=== PATIENT | female | born 1955 | race Caucasian/White ===

== ENCOUNTER 2021-07-23 08:01 | Outpatient (CLI) | payer MEDICARE, SELFPAY ==
--- NOTE | 2021-07-23 08:00 | US_ITS ---
WS: [id number] ULTRASOUND PELVIS TECHNIQUE: Transvaginal. CLINICAL INFORMATION: N95.0 - Postmenopausal bleeding : No. COMPARISON: None. FINDINGS: Patient with history of prolapsed uterus. Patient complains of pain with transducer pressure and unab le to complete examination. In addition prolapsed bladder is seen and prevents transvaginal examination. US/US transvaginal [id number] IMPRESSION: Prolapsed bladder is seen and prevents transvaginal ultrasound examination. [place] dewayne is not evaluated.
== END 2021-07-23 08:02 | disposition home or self-care (01) ==
PROVIDERS: PCP Family Medicine; Visit Provider Obstetrics & Gynecology
DX: N95.0 Postmenopausal bleeding (principal); N81.10 Cystocele, unspecified
CPT/HCPCS: 76830

== ENCOUNTER 2021-09-10 08:12 | Outpatient (CLI) | payer MEDICARE, SELFPAY ==
--- NOTE | 2021-09-10 08:35 | USCV_ITS ---
Bela Benedict Age: 66 Gender: F : 1955 Exam Date: 09/10/2021 08:43 Ordering Phys: Rachelle Mcfadden Technologist: Shreya Olson Exam Location: [facility]_ Indication: Hypertension uncontrolled Aortic Velocity @ SMA (cm/s) 112 RIGHT KIDNEY LEFT KIDNEY Velocity (cm/s) Velocity (cm/s) Sys/Umana Sys/Umana Resistive Index Resistive Index 159.4 / 55.4 0.65 Proximal Renal Artery 145.0 / 40.9 0.72 196.8 / 52.7 0.73 Mid Renal Artery 187.1 / 59.6 0.68 195.4 / 61.0 0.69 Distal Renal Artery 167.7 / 49.9 0.70 158.0 / 34.7 0.78 Hilar 185.7 / 61.0 0.67 175.0 / 41.8 0.73 Upper Pole 84.3 / 21.5 0.75 74.4 / 19.2 0.74 Mid Pole 49.6 / 13.0 0.73 100.3 / 28.3 0.72 Lower Pole 64.1 / 18.3 0.71 1.80 Renal Aortic Ratio 1.67 Accleration Index (cm/sec2) 862.00 Hilar 1155.0 0 630.00 Upper Pole 512.00 562.00 Mid Pole 387.00 891.00 Lower Pole 238.00 108.3 Kidney Length (mm) 110.6 CONCLUSIONS Moderate left hydronephrosis. This could be further evaluated with CT Abdomen/Pelvis to assess for distal obstruction Stan kidney 11.0cm Right kidney 10.8cm Compared to prior study. No sonographic evidence of hemodynamically significant renal artery stenosis bilaterally. Maksim Tavarez MD (Electronically Signed) Final Date: 10 September 2021 12:43 S
== END 2021-09-10 08:13 | disposition home or self-care (01) ==
PROVIDERS: PCP Family Medicine; Visit Provider Family Medicine
DX: I10 Essential (primary) hypertension (principal); N13.30 Unspecified hydronephrosis
CPT/HCPCS: 93975

== ENCOUNTER 2021-09-11 13:29 | Outpatient (CLI) | payer MEDICARE, SELFPAY ==
--- NOTE | 2021-09-11 13:40 | CT_ITS ---
WS: [id number] CT ABDOMEN AND PELVIS NONCONTRAST HISTORY: HYDRONEPHROSIS TECHNIQUE: Imaging performed through the abdomen and pelvis. Coronal and sagittal reformats are submi tted. All CT scans at [facility] use at least one of these dose optimization techniques: auto mated exposure control; mA and/or kV adjustment per patient size (includes targeted exams where dose is matched to clinical indication); or iterative reconstruction. DLP: 693.67 mGy.cm COMPARISON: None available. Lower thorax: Lung bases are clear. Visualized heart is normal. No hiatal hernia. Liver: Normal size liver. No mass or bile duct dilatation. Gallbladder: Normal gallbladder. Pancreas: Poorly visualized. No abnormality identified. Spleen: Normal. Adrenal glands: Normal. No mass. Right kidney: Normal size kidney with no mass or hydronephrosis. Left kidney: No perinephric stranding. There is moderate hydronephrosis. The proximal ureter is dilat ed. Ureter returns to more normal diameter in the proximal ureter. No mass identified and no calcific ation or stone at this location. Nonobstructing tiny calcifications in the LEFT renal pelvis. Low-att enuation nodule with wall calcification upper pole LEFT kidney measures 13 mm. Aorta: Atherosclerotic changes within the aorta. No aneurysm. No free fluid, intraperitoneal air or significant lymphadenopathy. GI tract: Extensive fecal retention and constipation. Air throughout the colon. No obstruction. Abdominal wall: Small umbilical hernia contains fat only. Pelvis: Normal. Osseous structures: Mild scoliosis and degenerative changes. CT/CT kidney stone [id number] IMPRESSION: 1. Moderate LEFT hydronephrosis. Mild change in caliber in the proximal LEFT u reter. No ureteral calcification or density identified. Stricture or ureteral n odule not excluded. Recommend further evaluation by urology. CT urography may b e also be helpful to try to elicit the etiology of the hydronephrosis. 2. LEFT renal cyst with wall calcification upper pole. 3. Diffuse marked constipation.
== END 2021-09-11 13:30 | disposition home or self-care (01) ==
LOC: RAD 13:30
PROVIDERS: PCP Family Medicine; Visit Provider Nurse Practitioner Family
DX: N13.30 Unspecified hydronephrosis (principal); K59.00 Constipation, unspecified; Q61.01 Congenital single renal cyst
CPT/HCPCS: 74176

== ENCOUNTER 2021-09-22 08:38 | Day surgery (SDC) | payer MEDICARE, SELFPAY ==
[2021-09-21 14:47] VITALS: BMI 21.5
[2021-09-22] VITALS (9 sets, daily range): BP systolic 164–198; BP diastolic 90–127; PULSE 54–70; RESP 12–17; TEMP 36.3–36.6; O2SAT 96–100
[2021-09-22] MEDS: acetaminophen 1,000 MG/100 ML PIGGYBACK 400 MG IV (09:25)
[2021-09-22] MEDS: sodium chloride 0.9% 1,000 ML 30 ML IV (09:25)
--- NOTE | 2021-09-22 10:20 | W.PM.OPSUD ---
Surgery/Procedure H&P Update DATE OF PROCEDURE: September 22, 2021 DATE H&P PERFORMED: 09/17/21 H&P UPDATE INFORMATION: I have reviewed H&P completed within last 30 days, I have examined patient prior to procedure and Changes to prior documentation as noted here CHANGES TO PREVIOUS DOCUMENTATION: The patient had stents placed yesterday due to urinary retention PREOP DIAGNOSIS: thickened endometrium, PMB PLANNED PROCEDURE: Operation Date: 09/22/21 10:15 Proposed Procedures p Hysteroscopy, dilation and curettage with Myosure 37069, 43972, 63721,N95.0(Not Applicable) - Luz Ames MD s Dilation And Curettage (D&C)(Not Applicable) - Luz Ames MD Related Problem List Diagnoses (1) Cervical stenosis (uterine cervix): (2) PMB (postmenopausal bleeding): (3) Procidentia of uterus:
--- NOTE | 2021-09-22 10:23 | ANES.PREANE2 ---
Pre-Anesthetic Assessment Height/Weight: Height 1.57 m Weight 53.524 kg Temp Pulse Resp BP Pulse Ox O2 Del Method 97.4 F L 70 15 198/127 100 09/22/21 08:52 09/22/21 08:52 09/22/21 08:52 09/22/21 08:52 09/22/21 08:52 09/22/21 08:54 Preop Diagnosis: thickened endometrium, PMB Operation Date: 09/22/21 10:15 Proposed Procedures p Hysteroscopy, dilation and curettage with Myosure 97504, 00815, 97517,N95.0(Not Applicable) - Luz Ames MD s Dilation And Curettage (D&C)(Not Applicable) - Luz Ames MD Familial anesthetic complications: PONV, postop delirim Was Beta Wes taken within 24 hours: Yes Was Clonidine taken within 24 hours: N/A Last intake: Intake Last Liquid Date 09/21/21 Last Liquid Time 23:00 Last Solid Date 09/21/21 Last Solid Time 23:00 Social Tobacco and No alcohol Exam alert, oriented x 3 and regular rate & rhythm rhonchi Airway Submandibular: within normal limits Cervical ROM: within normal limits Mallampati: Class II Dentition: chipped Comments: Comments: Missing several Pulmonary Chronic Obstructive Pulmonary Disease CV/HEM Hypertension Neuropsych cerebral aneurysm Anesthetic Plan ASA status: 3 Anesthesia: General (TIVA for PONV) Medications/Allergies Home Medications Medication Instructions Recorded Confirmed Last Taken Type acetaminophen 325 mg capsule 325 mg PO QID PRN Pain 07/09/21 09/21/21 Unknown History ascorbic acid (vitamin C) 1,000 mg 1,000 mg PO Q12H 07/09/21 09/22/21 09/21/21 History tablet,extended release hydralazine 10 mg tablet 10 mg PO TID 07/09/21 09/22/21 09/22/21 History lisinopril 40 mg tablet 40 mg PO DAILY 07/09/21 09/22/21 09/21/21 History magnesium 200 mg tablet 200 mg PO DAILY 07/09/21 09/22/21 09/21/21 History gnwqvpkp-qnv-iskfg ac 400 1 tab PO DAILY 07/09/21 09/22/21 09/21/21 History mcg-calcium carb 500 mg-vit K1 20 mcg tablet (Women's 50 Plus Multivitamin) omega 4-cpd-vtv-fish oil 100 1 cap PO DAILY 07/09/21 09/21/21 09/17/21 History mg-160 mg-1,000 mg capsule (Fish Oil) propranolol 10 mg tablet 10 mg PO TID 07/09/21 09/22/21 09/21/21 History lacosamide 100 mg tablet (Vimpat) 100 mg PO BID 09/17/21 09/22/21 09/22/21 History misoprostol 200 mcg tablet 600 mcg PO Q6H stenotic cervix #36 09/18/21 09/22/21 09/22/21 Rx (Cytotec) tabs Allergies Allergy/AdvReac Type Severity Reaction Status Date / Time divalproex sodium Allergy Severe Unknown Verified 09/21/21 14:37 [From Depakote] Calcium Channel Blocking Allergy Unknown Unknown Verified 09/21/21 14:37 Agent Dilt gabapentin Allergy Unknown Unknown Verified 09/21/21 14:37 levetiracetam Allergy Unknown Unknown Verified 09/21/21 14:37 morphine Allergy Unknown Unknown Verified 09/21/21 14:37 Warsuti-ZEY-JqN Reductase Allergy Unknown Unknown Verified 09/21/21 14:37 Inhibitor Current Medications Generic Name Dose Route Start Last Admin Trade Name Freq PRN Reason Stop Dose Admin Sodium Chloride 1,000 mls @ 30 mls/hr 09/22/21 08:45 09/22/21 09:25 Sodium Chloride 0.9% IV 09/23/21 08:44 30 mls/hr .Q24H MAYDA Administration PFSH Anesthesia Medical History Hypertension Hyperthyroidism Stroke December Surgical History History of back surgery 3 back surgeries, implantations placed History of craniotomy 2004, reconnection in 2005 Family History Mother Hyperlipidemia Hypertension Thyroid disease hyperthyroidism Daughter Stroke Denies family history of Cervical cancer Colon cancer Prostate cancer Diabetes Heart disease Breast cancer Bleeding disorder Uterine cancer Data Anesthesia Cardiac Studies: No Data to Display
[2021-09-22] MEDS: ceFAZolin 2,000 MG in sodium chloride 0.9% (plus) 50 ML 100 MG IV (10:31)
--- NOTE | 2021-09-22 11:13 | PM.OP ---
Operative Report Date of procedure: September 22, 2021 Pre-op diagnosis: Preop Diagnosis thickened endometrium, PMB Post-op diagnosis: same Post-op findings: universally thickened endometrium Procedure done: hysteroscopy, dilation and curettage with myosure Specimens removed/disposition: endometrial curettings to pathology Surgeon: Luz Ames Anesthesia: MAC Estimated blood loss (mL): 5 IV fluids (mL): 500 Findings: hysteroscoy deficit: 75 ml. Condition: stable Disposition: PACU Procedure: The patient was taken to the operating room where monitored anesthesia was administered and to be adequate. She was prepped and draped in the normal sterile fashion in the dorsal lithotomy position in [facility]. A weighted speculum was placed into the vagina and the anterior lip of the cervix grasped with a single-tooth tenaculum. The uterus was sounded to 10 cm. The cervix was dilated to 16 Slov[place]. The hysteroscope was advanced into the endometrial cavity. There was excessive tissue visualized. The MyoSure device was activated and the tissue was removed. Pictures were taken pre and post procedure. All instruments were removed. The patient tolerated the procedure well. Sponge lap and needle counts were correct x3. She was taken to the recovery room in stable condition.
--- NOTE | 2021-09-22 11:19 | PM.DCS ---
Discharge Providers Date of Admission: 09/22/21 Date of Discharge: September 22, 2021 Attending Provider at Admission: joi Attending Provider at Discharge: Luz Ames MD Primary Care Provider: Estuardo Oconnor MD Diagnoses at Discharge Discharge Diagnosis (1) Cervical stenosis (uterine cervix): Status: Acute (2) PMB (postmenopausal bleeding): Status: Acute (3) Procidentia of uterus: Status: Acute Reason for Visit Reason for Visit: Surg on 09/22/21 Hospital Course Hospital Course The patient was admitted for surgery. She did well postoperatively and was ready for discharge. Discharge Data Studies Completed and Pending Pending at discharge Category Date Time Status ES surgery / GI images Routine Exams 09/22/21 09:23 Taken Vitals Last Vital Signs Temp 97.4 F L 09/22/21 08:52 Pulse 70 09/22/21 08:52 Resp 15 09/22/21 08:52 BP 198/127 09/22/21 08:52 Pulse Ox 100 09/22/21 08:52 O2 Del Method 09/22/21 08:54 Discharge Plan Discharge Patient Disposition: Home Condition: Stable Prescriptions: Continued lacosamide [Vimpat] 100 mg tablet 100 mg PO BID misoprostol [Cytotec] 200 mcg tablet 600 mcg PO Q6H Qty: 36 0RF Rx Instructions: start 12:00 pm Tuesday 09/19. Final dose 6:00 am 09/22 hydralazine 10 mg tablet 10 mg PO TID propranolol 10 mg tablet 10 mg PO TID lisinopril 40 mg tablet 40 mg PO DAILY Label Comments: at night ascorbic acid (vitamin C) 1,000 mg tablet extended release 1,000 mg PO Q12H Fish Oil 100-160-1,000 mg capsule 1 cap PO DAILY magnesium 200 mg tablet 200 mg PO DAILY Women's 50 Plus Multivitamin 400 mcg-500 mg calcium-20 mcg tablet 1 tab PO DAILY acetaminophen 325 mg capsule 325 mg PO QID PRN (Reason: Pain) Discharge Orders: Discharge Order (Routine); Ordered 09/22/21 Ordered By: Luz Ames Discharge Attestations Time Spent in Discharge Care*: less than 30 min Quality Metrics Clinical Quality Measures [ No reported AMI, CVA or VTE this stay] Coding Level of Care Code Acute Chg FW DC note Diagnoses Cervical stenosis (uterine cervix) N88.2 PMB (postmenopausal bleeding) N95.0 Procidentia of uterus N81.3
--- NOTE | 2021-09-22 15:56 | ANE.PACU2 ---
Inpatient post-anesthesia follow up: Airway intact: Yes Vital signs: Temperature 98 F Pulse Rate 64 Respiratory Rate 17 Blood Pressure 164/100 Pulse Oximetry 99 Oxygen Delivery Me thod Room Air Oxygen Flow Rate Fraction of Inspir ed Oxygen Hydration adequate: Yes Nausea and vomiting: No Pain level: 2 Mental status: Baseline
== END 2021-09-22 12:24 | disposition home or self-care (01) ==
PROVIDERS: PCP Family Medicine; Visit Provider Obstetrics & Gynecology
PROC: 0UDB8ZZ Extraction of Endometrium, Via Natural or Artificial Opening Endoscopic (ICD-10-PCS; CPT 58558; principal; 2021-09-22 10:05)
PROC: (CPT 58120; 2021-09-22 10:05)
DX: R93.89 Abnormal findings on diagnostic imaging of other specified body structures (principal); N88.2 Stricture and stenosis of cervix uteri; N95.0 Postmenopausal bleeding; N81.3 Complete uterovaginal prolapse; J44.9 Chronic obstructive pulmonary disease, unspecified; I10 Essential (primary) hypertension; E03.9 Hypothyroidism, unspecified; Z86.73 Personal history of transient ischemic attack (TIA), and cerebral infarction without residual deficits
CPT/HCPCS: 58558; 88305; 88342; J0330; J1100; J1200; J2405; J2704; J3010; J7030

== ENCOUNTER 2022-09-22 11:15 | Outpatient (CLI) | payer MEDICARE, SELFPAY ==
--- NOTE | 2022-09-22 11:21 | MM_ITS ---
WS: [id number] BILATERAL 3D TOMOSYNTHESIS DIGITAL SCREENING MAMMOGRAPHY WITH CAD CLINICAL INFORMATION: SCREENING HISTORY: Screening mammogram. No current complaints. COMPARISON: 2019 TECHNIQUE: Bilateral CC and MLO views. FINDINGS: Scattered fibroglandular densities bilaterally. No suspicious focal mass, asymmetry, calcifications, or architectural distortion. No evidence of malignancy. A few incidental punctate calcifications. MM/[place] [id number] IMPRESSION: BI-RADS: 2-Benign FOLLOW UP: 1 Year Follow-up Recommend return to annual screening mammography.
== END 2022-09-22 11:16 | disposition home or self-care (01) ==
PROVIDERS: PCP Family Medicine; Visit Provider Family Medicine
DX: Z12.31 Encounter for screening mammogram for malignant neoplasm of breast (principal)
CPT/HCPCS: 77063; 77067

== ENCOUNTER → 2023-06-27 09:05 | Outpatient (BNVA) | payer MEDICARE, SELFPAY | PROVIDERS: PCP Family Medicine; Visit Provider Podiatrist Foot & Ankle Surgery | DX: S92.912A Unspecified fracture of left toe(s), initial encounter for closed fracture (principal); X58.XXXA Exposure to other specified factors, initial encounter | CPT/HCPCS: 99203 ==

== ENCOUNTER 2024-11-13 11:28 | Emergency (ER) | payer OTHER, SELFPAY ==
--- OUTSIDE RECORDS SUMMARY | 2024-07-09 10:00 | XMS_ITS ---
Author Organization [email or web address] Address [address] [facility] [place] [address] Care Team Providers Care Store Warehouse Associate Name Role Phone Blanco Lou Primary Care Provider UnavailGERI Chong Unavailable [phone] Rachelle Mcfadden APRN Unavailable Unavailable WADE LOVE Unavailable [phone] REASON FOR VISIT 1 yr w/ ua/pvr Encounters Encounter Location Date Provider Diagnosis [email or web address] [address] [place] [address] 07/09/2024 WADE LOVE Plan Of Treatment No Information Progress Notes * Bela HOLLINGSWORTHDOB: [birth year] (69 yo F)Acc No.[id number]:07/09/2024 Progress Notes Patient: Debbi SILVEIRA Bela Verdugo Provider: WOLF Casey :1955 A ge:69 Y S ex:Female Date:07/09/2024 Address:[address] , [address] Pcp:Blanco Lou Subjective: * Chief Complaints: * 1 . 1 yr w/ ua/pvr. * Medical History: Objective: * Vitals: Assessment: Plan: * Treatment: * Billing Information: * Visit Code: * Procedure Codes: * Electronic signature of WADE LOVE APRN on 11/13/2024 at 11:35 AM CDT Sign off status: Pending * Provider: WOLF Casey Date: 07/09/2024 Generated for Florian ng/Faradhag/eTransmitting on: 0 11/13/2024 11:35 AM CDT
--- OUTSIDE RECORDS SUMMARY | 2024-08-10 04:50 | XMS_ITS ---
Author Organization [email or web address] Address [address] [place] [address] Care Team Providers Care Building Rigger Name Role Phone Blanco Lou Primary Care Provider UnavailGERI Chong Unavailable [phone] Rachelle Mcfadden APRN Unavailable Unavailable WADE MORAN Unavailable [phone] REASON FOR VISIT 1 yr w/ ua/pvr Encounters Encounter Location Date Provider Diagnosis [email or web address] [address] [place] [address] 08/10/2024 WADE MORAN Incomplete emptying of bladder R33.9 ; S/P hysterectomy Z90.710 and History of hydronephrosis Z87.448 Assessments Encounter Date Diagnosis (ICD Code) Assessment Notes Treatment Notes Treatment Clinical Notes Section Notes 08/10/2024 Incomplete emptying of bladder (ICD-10 - R33.9) 08/10/2024 S/P hysterectomy (ICD-10 - Z90.710) 08/10/2024 History of hydronephrosis (ICD-10 - Z87.448) Plan Of Treatment No Information Progress Notes * Bela HOLLINGSWORTHDOB: [birth year] (69 yo F)Acc No.[id number]:08/10/2024 Progress Notes Patient: Debbi SILVEIRABela Provider: Jennifer Moran APRN-[facility] CONS[facility]ANT :1955 A ge:69 Y S ex:Female Date:08/10/2024 Address:[address], [address] [place] [id number] Pcp:Blanco Lou Subjective: * Chief Complaints: * 1 . 1 yr w/ ua/pvr. * HPI: M igrated HPI: Ms. Hollingsworth is a 69-y/o female patient of Dr. Corley referred with severe bladder prolapse, difficulty voiding and L hydronephrosis on imaging. C [place] [facility] [place] and revealed L hydroureteronephrosis, no stones. She denies flank pain and fever. She underwent bilateral RPG's and bilateral stent placement on 09/21/21. She underwent hysterectomy with colpocleisis with Dr. Blancas on 10/07/21, and I removed her bilateral stents at that time. She reports voiding is much easier now since surgery. ELAINE showed no hydronephrosis. She denies any interval UTI. She reports occasional urge incontinence if she gets too busy and waits too long to void. Otherwise, she has no urological compliants. Patient presents today for 1 year follow up. Denies dysuria, hematuria, flank pain or SP tenderness. * Medical History: Objective: * Vitals: Assessment: * Assessment: 1. I ncomplete emptying of bladder - R33.9 (Primary) 2 . S /P hysterectomy - Z90.710 3 . H istory of hydronephrosis - Z87.448 S pecify :bilateral Plan: * Treatment: * Billing Information: * Visit Code: * Procedure Codes: * Electronic signature of WADE MORAN APRN on 11/13/2024 at 11:35 AM CDT Sign off status: Pending * Provider: Jennifer Moran APRN-[facility] Date: 0 08/10/2024 Generated for Florian blanco/Prasanth/Gypsyitting on: 0 11/13/2024 11:35 AM CDT History and Physical Notes * HPI (History of Present Illness) Category Sub-Category Detail Notes Category Not es Migrated HPI Ms. Hollingsworth is a 69-y/o female patient of Dr. Corley referred with severe bladder prolapse, difficulty voiding and L hydronephrosis on imaging. CT [place] 09[place] [facility] [place] and revealed L hydroureteronephrosis, no stones. She denies flank pain and fever. She underwent bilateral RPG's and bilateral stent placement on 09/21/21. She underwent hysterectomy with colpocleisis with Dr. Blancas on 10/07/21, and I removed her bilateral stents at that time. She reports voiding is much easier now since surgery. ELAINE showed no hydronephrosis. She denies any interval UTI. She reports occasional urge incontinence if she gets too busy and waits too long to void. Otherwise, she has no urological compliants. Patient presents today for 1 year follow up. Denies dysuria, hematuria, flank pain or SP tenderness.
--- OUTSIDE RECORDS SUMMARY | 2024-11-10 10:02 | XMS_ITS | Encounter Summary ---
Author Organization [facility] Address [address] [place] [address] Care Team Providers Care Bus Assistant Name Role Phone Blanco Lou MD Primary Care Provider [phone] Reason for Referral * Eval and Treat (5-7 Days) - Authorized Specialty Diagnoses / Procedures Referred By Contac t Referred To Contact Orthopedic Surgery Diagnoses Closed traumatic nondisplaced metaphyseal torus fracture of distal end of left radius, initial encounter Procedures [facility] OFFICE/OUTPATIENT ESTABLISHED MOD MDM 30 MIN VA OFFICE/OUTPATIENT NEW MODERATE MDM 45 MINUTES Millie Astudillo FNP [address] [address] Phone: tel: fax: Demar Lowry MD [address] [place] [address] Phone: tel: fax: Referral ID Status Reason Start Date Expiration Date V isits Requested Visits Authorized [id number] Authorized 11/10/2024 11/10/2025 1 1 Reason for Visit * Reason Comments Arm Injury LEFT HAND, WRIST AND FOREARM Encounter Details Date Type Department Care Team (Late st Contact Info) Description 11/10/2024 10:02 AM CDT - 11/10/2024 11:40 AM CDT Emergency [facility] Emergency Medicine [address] [facility] [address] [place] [address] Vijay Siegel, DO [address] [place] [phone] Closed traumatic nondisplaced metaphyseal torus fracture of distal end of left radius, initial encounter (Primary Dx) Discharge Disposition: Home or Self Care Social History Tobacco Use Types Packs/Day Years Used Date Smoking Tobacco: Every Day Cigarettes Passive Smoke Exposure: Current Smokeless Tobacco: Never Tobacco Cessation:Ready to Q uit: Not Asked; Counseling Given: Not Answered Alcohol Use Standard Drinks/Week Comments Yes 0 (1 standard drink = 0.6 oz pur e alcohol) 3 times a week Feeling Safe Answer Date Recorded Are you in a relationship wi th someone who hurts you emotionally and/or physically? 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 Gender Identity Not on file Sexual Orientation Not on file documented as of this encounter Last Filed Vital Signs Vital Sign Reading Time Taken Comments Blood Pressure 184/90 11/10/2024 11:30 AM CDT Pulse 72 11/10/2024 11:00 AM CDT Temperature 36.6 C (97.8 F) 11/10/2024 11:30 AM CDT Respiratory Rate 20 11/10/2024 11:30 AM CDT Oxygen Saturation 97% 11/10/2024 11:30 AM CDT Inhaled Oxygen Concentration - - Weight 50.9 kg (112 lb 3.2 oz) 11/10/2024 10:09 AM CDT Height 157.5 cm (5' 2 ) 11/10/2024 10:09 AM CDT Body Mass Index 20.52 11/10/2024 10:09 AM CDT documented in this encounter Discharge Instructions * Discharge Instructions* Millie Astudillo FNP - 11/10/2024 10:52 AM CDT Minimally impacted likely transversely oriented fracture in the distal radial metaphysis within the distal forearm. Rest and elevate the affected painful area. Apply cold compresses intermittently as needed. As painrecedes, leave splint in place until you see your PCP. Celebrex for pain. Take with food. Follow up with Orthopedics. Referral was placed. * Attachments The following attachments cannot be sent through Care Everywhere. * Arm Fracture (Northern Irish) * Splint or Immobilizer Use (Northern Irish) * Slings: General Info (Northern Irish) * Celecoxib (Northern Irish) documented in this encounter Medications at Time of Discharge celecoxib (CeleBREX) 100 mg capsule Take 1 Capsule (100 mg) by mouth 2 times daily as needed for Pain. 14 Capsule 5 11/18/19 25 lacosamide (VIMPAT) 200 mg tablet Take 200 mg by mouth 2 times daily. [id number]-[id number] h oil (Fish OiL) 1,000 mg Capsule 1 Capsule. antiox #8/om3/dha/epa/lut/ zeax (PRESERVISION AREDS 2, OMEGA-3, ORAL) PreserVision AREDS 2 propranoloL (INDERAL) 10 mg tabletIndications:E ssential hypertension Take 1 Tablet (10 mg) by mouth 3 times daily. 270 Tablet 3 5 hydrALAZINE (APRESOLINE) 50 mg tabletIndications:P rimary hypertension Take 1 Tablet (50 mg) by mouth 3 times daily. 270 Tablet 3 5 lisinopriL (PRINIVIL) 40 mg tabletIndications:E ssential hypertension TAKE 1 TABLET BY MOUTH IN THE MORNING AND 1/2 (ONE-HALF) IN THE EVENING 135 Tablet 3 5 levothyroxine 50 mcg tabletIndications:A cquired hypothyroidism Take 1 Tablet (50 mcg) by mouth daily. 100 Tablet 3 5 albuterol sulfate HFA 90 mcg/actuation aerosol inhalerIndications: Upper respiratory tract infection, unspecified type Take 2 Puffs by inhalation every 6 hours as needed for Shortness of Breath or Wheezing. 8.5 Gram 4 hydroCHLOROthiazide (MICROZIDE) 12.5 mg capsuleIndications: Primary hypertension Take 1 capsule by mouth once daily 100 Capsule 2 4 midazolam (Nayzilam) 5 mg/spray (0.1 mL) Panther, Non-Aerosol Administer 5 mg in each nostril. 3 Nayzilam 5 mg/spray (0.1 mL) Panther, Non-Aerosol 2 MAGNESIUM ORAL Take by mouth. vit A/vit C/vit E/zinc/copper (ICAPS AREDS ORAL) Take by mouth. ascorbic acid, vitamin C, (VITAMIN C) 1,000 mg Tablet Take 2,000-3,000 mg by mouth daily. multivitamin (DAILY-JOVANNI) tablet Take 1 Tablet by mouth daily. ascorbic acid, vitamin C, (VITAMIN C) 1,000 mg Tablet Take 2,000-3,000 mg by mouth daily. 7 multivitamin (DAILY-JOVANNI) tablet Take 1 Tablet by mouth daily. 7 omega-3 fatty acids-fish oil 300-1,000 mg Capsule Take 3 Capsule by mouth daily. 7 documented as of this encounter ED Notes * Marlena Clements RN - 11/10/2024 11:35 AM CDT Patient advises that she wants [facility] for referral. Will have expense clerk fax chart for referral. Tamiko Astudillo MEDICARE INSURANCE SPECIALIST notified. Discussed that we will leave Loreta Duran referral in the chart also, and they can decide on which one they want based on time frame of when patient can be seen. * Marlena Clements RN - 11/10/2024 11:13 AM CDT Tamiko Astudillo MEDICARE INSURANCE SPECIALIST applying sling to left arm * Marlena Clements RN - 11/10/2024 11:04 AM CDT Tamiko Astudillo MEDICARE INSURANCE SPECIALIST in room applying splint. * Marlena Clements RN - 11/10/2024 10:30 AM CDT Radiology at bedside * Marlena Clements RN - 11/10/2024 10:17 AM CDT Radiology notified of orders * Marlena Clements RN - 11/10/2024 10:09 AM CDT Patient states around 0830 today was planting gonzales at her brother's house. States she was on a stool so she isn't completely in the dirt. States she fell off of the stool landing on the left arm. States her left hand, wrist and forearm hurts. Swelling noted to left wrist and forearm. Denies lossof consciousness or head injury. States her unsteady gait and slow speech is not new. States she had a stroke in the past causing these symptoms. * Millie Astudillo FNP - 11/10/2024 9:29 AM CDT Images from the original note were not included. 11/10/24 10:48 AM HISTORY OF PRESENT ILLNESS History of Present Illness The patient presents for evaluation of left arm pain. She experienced a fall while working outdoors, specifically falling backwards off a stool in the yard. She attempted to break her fall with her arms, resulting in pain in her left arm. She reports noother injuries, including head trauma or loss of consciousness. The pain is localized to her mid-forearm, with no discomfort reported in the wrist area. She also notes some swelling in the affected area. She has been managing the pain with Tylenol and expresses no interest in additional pain medication. PAST MEDICAL HISTORY REVIEWED MEDICAL: Patient has a past medical history of Cerebral hemorrhage (CMS/HCC) (03/28), CVD (cerebrovascular disease), Head ache (08/03/2011), HTN, HTN (hypertension), Hypothyroidism, Seizure disorder (CMS/HCC), and Unspecified disorder of lipoid metabolism. SURGICAL: Patient has a past surgical history that includes gastrostomy (2004); cervix conization (1988); craniotomy (2004); lumbar spine surgery (1998, 1995); spinal surgery; and total vaginal hysterectomy (11/23/2021). ALLERGIES Amlodipine, Atorvastatin, Levetiracetam, Kuushio-okw-cvt reductase inhibitors, Gabapentin, and Morphine PHYSICAL EXAM INITIAL VS BP: (!) 191/114 (11/10/24 1009), Heart Rate: 66 bpm (11/10/24 100), Resp: 20 (11/10/24 100), Pulse: 72 (11/10/24 1100), Temp: 97.5 ??F (36.4 ??C) (11/10/241008), Temp src: Temporal (11/10/24 100), SpO2: 99 % (11/10/241008), Height: 5' 2 (157.5 cm) (11/10/241008), Weight: 50.9 kg (112 lb 3.2 oz) (11/10/24 100), BMI (Calculated): 20.52 (11/10/241008) No LMP recorded. Patient has had a hysterectomy. Blood pressure (!) 186/105, pulse 72, temperature 97.5 ??F (36.4 ??C), temperature source Temporal,resp. rate 20, height 5' 2 (1.575 m), weight 50.9 kg (112 lb 3.2 oz), SpO2 96%, not currently . Physical Exam Constitutional: Appearance: Normal appearance. HENT: Nose: Nose normal. Mouth/Throat: Mouth: Mucous membranes are moist. Eyes: Pupils: Pupils are equal, round, and reactive to light. Cardiovascular: Rate and Rhythm: Normal rate and regular rhythm. Pulmonary: Effort: Pulmonary effort is normal. Abdominal: General: Abdomen is flat. Musculoskeletal: Left forearm: Swelling, tenderness and bony tenderness present. Arms: Cervical back: Normal range of motion. Skin: General: Skin is warm. Neurological: General: No focal deficit present. Mental Status: She is alert. Psychiatric: Mood and Affect: Mood normal. Physical Exam Extremities: Mild swelling noted in the left mid forearm. DIAGNOSTICS LAB: No data to display RADIOLOGY: XR FOREARM 2 VW LEFT Radiologist Impression XR HAND 3+ VW LEFT Radiologist Impression EKG: Results Results independently interpreted by JOAO Siu PROCEDURES Procedures MEDICAL DECISION MAKING AND PLAN OF CARE Assessment & Plan 1. Left arm pain: - The patient fell backwards off a stool while working in the yard and landed on her left arm. She reports pain in the mid-forearm area with visible swelling. - An x-ray of the left arm was performed, and the results are pending. - She prefers to manage pain with Tylenol and does not want any additional pain medication. HTN- Patient reports taking her home medication. ED Course as of 11/10/24 1128 Sat Nov 10, 2024 1048 minimally impacted likely transversely oriented fracture in the distal radial metaphysis within the distal forearm. [PH] 1100 Splint fot L forearm with plan to follow up outpatient with ortho [PH] 1123 Patient agreeable to toradol and will send po medications. Daughter at bedside. Plan to follow up with ortho. [PH] 1127 Monitor BP after toradol. If pain reduced and BP improves may DC [PH] ED Course User Index [PH] Millie Astudillo FNP Medical Decision Making Amount and/or Complexity of Data Reviewed Radiology: ordered. Clinical Scoring & Consults Medications Administered During the ED Stay from 11/10/2024 0930 to 11/10/2024 1128 Date/Time Order Dose Route Action 11/10/2024 1127 CDT ketorolac (TORADOL) injection 10 mg 10 mg IM Given . New Prescriptions for this Encounter CELECOXIB (CELEBREX) 100 MG CAPSULE Take 1 Capsule (100 mg) by mouth 2 times daily as needed for Pain. LAST VS BP: (!) 186/105 (11/10/24 1030), Heart Rate: 65 bpm (11/10/24 1030), Resp: 20 (11/10/24 1100), Pulse: 72 (11/10/24 1100), Temp: 97.5 ??F (36.4 ??C) (11/10/24 1009), Temp src: Temporal (11/10/24 1009), SpO2: 96 % (11/10/24 1100) CLINICAL IMPRESSION Diagnosis Diagnosis Comment Added By Time Added Closed traumatic nondisplaced metaphyseal torus fracture of distal end of left radius, initial encounter [S52.522A] Millie Astudillo FNP 11/10/2024 10:52 AM DISPOSITION, EDUCATION AND MEDICATION RECONCILIATION Medications reconciled. See after visit summary for patient education on discharged patients. ED Disposition ED Disposition Discharge Condition Stable User Millie Astudillo FNP Date/Time Sat Nov 10, 2024 11:27 AM Comment -- Cosigned by Vijay Siegel DO at 11/10/2024 11:46 AM CDT Associated attestation - Vijay Siegel DO - 11/10/2024 11:46 AM CDT I have read the note. I do not see this patient in person. I was present available for any questionconcerns and expectation may have had throughout the entirety of this patient's evaluation treatment disposition. documented in this encounter Miscellaneous Notes * Gen AI BRIJESH - GENERATIVE AI HANDOFF NOTE - 11/11/2024 11:38 PM CDT ## ER_course: ## # DIAGNOSIS: Closed traumatic nondisplaced metaphyseal torus fracture of distal end of left radius. The patient presented with left arm pain after falling backwards off a stool while planting gonzales. She attempted to break her fall with her arms, resulting in pain and swelling in the left mid-forearm. The patient denied any head injury or loss of consciousness. # During the ER visit, the following abnormalities were noted: Swelling and tenderness in the left forearm. Blood pressure was elevated at 191/114 and later 186/105. An x-ray of the left arm was performed, and the results indicated a minimally impacted likely transversely oriented fracture in the distal radial metaphysis within the distal forearm. # Medications administered included ketorolac (Toradol) 10 mg IM. The patient was also prescribed Celecoxib (Celebrex) 100 mg to be taken twice daily as needed for pain. ## Follow_up_orders: ## # The patient is to follow up with an retail marketing specialist. A referral was made to [facility], and an additional referral to [facility] was left in the chart for the patient to decide based on availability. # The x-ray results were pending at discharge. # The patient was instructed to manage pain with Tylenol and Celecoxib as needed. ## Home_Situation: ## # The patient's daughter was present at the bedside, indicating some level of caregiver support. No other factors potentially impairing follow-up care were noted. documented in this encounter Plan of Treatment Upcoming Encounters Date Type Department Care Team (Late st Contact Info) Description 11/14/2024 3:50 PM CDT Office Visit [facility] Orthopedics - [facility] [place] [id number] [place] [address] Demar Lowry MD [address] [place] [address] 04/22/2025 8:40 AM MICROBIOLOGY QUALITY CONTROL TECHNICIAN Office Visit [facility] Family Medicine [address] [phone] Blanco Lou MD [address] [phone] Scheduled Referrals Name Type Priority Associated Diagnoses Orde r Schedule AMB REFERRAL TO ORTHOPEDIC SURGERY Outpatient Referral Routine Closed traumatic nondisplaced metaphyseal torus fracture of distal end of left radius, initial encounter Ordered: 11/10/2024 documented as of this encounter Procedures Procedure Name Priority Date/Time Associated Diagnosis Comments XR FOREARM 2 VW LEFT Stat 11/10/2024 10:37 AM CDT XR HAND 3+ VW LEFT Stat 11/10/2024 10 :37 AM CDT documented in this encounter Results * XR FOREARM 2 VW LEFT (11/10/2024 10:37 AM CDT) Anatomical Region Laterality Modality Upper Extremity Computed Radiogr aphy 11/10/2024 10:3 8 AM CDT Narrative 11/10/2024 10:43 AM CDT EXAM: XR HAND 3+ VW LEFT, XR FOREARM 2 VW LEFT DATE/TIME OF EXAM: 11/10/2024 10:37 AM REASON FOR EXAM: Injury DIAGNOSIS: See Reason for Exam COMPARISON: None FINDINGS: No evidence of an acute fracture or dislocation within the hand, however there is a minimally impacted likely transversely oriented fracture in the distal radial metaphysis within the distal forearm. Widening of the scapholunate interval in the wrist likely related to a chronic scapholunate ligament tear. There is also chondrocalcinosis in the region of the triangular fibrocartilage complex and mild arthrosis in the wrist. No fracture identified more proximally in the radius or ulna. . Procedure Note Roosevelt Pickens MD - 11/10/2024 EXAM: XR HAND 3+ VW LEFT, XR FOREARM 2 VW LEFT DATE/TIME OF EXAM: 11/10/2024 10:37 AM REASON FOR EXAM: Injury DIAGNOSIS: See Reason for Exam COMPARISON: None FINDINGS: No evidence of an acute fracture or dislocation within the hand, however there is a minimally impacted likely transversely oriented fracture in the distal radial metaphysis within the distal forearm. Widening of the scapholunate interval in the wrist likely related to a chronic scapholunate ligament tear. There is also chondrocalcinosis in the region of the triangular fibrocartilage complex and mild arthrosis in the wrist. No fracture identified more proximally in the radius or ulna. . Vijay Siegel DO DIAGNOSTIC IMAGING ORDERABLES F inal Result * XR HAND 3+ VW LEFT (11/10/2024 10:37 AM CDT) Anatomical Region Laterality Modality Wrist / Hand Computed Radiogr aphy 11/10/2024 10:3 7 AM CDT Narrative 11/10/2024 10:43 AM CDT EXAM: XR HAND 3+ VW LEFT, XR FOREARM 2 VW LEFT DATE/TIME OF EXAM: 11/10/2024 10:37 AM REASON FOR EXAM: Injury DIAGNOSIS: See Reason for Exam COMPARISON: None FINDINGS: No evidence of an acute fracture or dislocation within the hand, however there is a minimally impacted likely transversely oriented fracture in the distal radial metaphysis within the distal forearm. Widening of the scapholunate interval in the wrist likely related to a chronic scapholunate ligament tear. There is also chondrocalcinosis in the region of the triangular fibrocartilage complex and mild arthrosis in the wrist. No fracture identified more proximally in the radius or ulna. . Procedure Note Roosevelt Pickens MD - 11/10/2024 EXAM: XR HAND 3+ VW LEFT, XR FOREARM 2 VW LEFT DATE/TIME OF EXAM: 11/10/2024 10:37 AM REASON FOR EXAM: Injury DIAGNOSIS: See Reason for Exam COMPARISON: None FINDINGS: No evidence of an acute fracture or dislocation within the hand, however there is a minimally impacted likely transversely oriented fracture in the distal radial metaphysis within the distal forearm. Widening of the scapholunate interval in the wrist likely related to a chronic scapholunate ligament tear. There is also chondrocalcinosis in the region of the triangular fibrocartilage complex and mild arthrosis in the wrist. No fracture identified more proximally in the radius or ulna. . Vijay Siegel DO DIAGNOSTIC IMAGING ORDERABLES F inal Result documented in this encounter Visit Diagnoses Diagnosis Closed traumatic nondisplaced metaphyseal torus fracture of distal end of left radius, initial encounter- Primary documented in this encounter Administered Medications Inactive Administered Medications - up to 3 most recent administrations Medication Order MAR Action Action Date Dose Rate Site ketorolac (TORADOL) injection 10 mg 10 mg, IM, ONE TIME ONLY, 1 dose, On 11/10/24 at 1130, Routine Given 11/10/2024 11:27 AM CDT 10 mg Buttock, Right documented in this encounter Active and Recently Administered Medications Times are shown in CDT. Scheduled Medication Order 11/08/2024 11/09/2024 11/10/2024 ketorolac (TORADOL) injection 10 mg (COMPLETED) 10 mg, IM, ONE TIME ONLY, 1 dose, On 11/10/24 at 1130, Routine 1127 (Given - Provid er: Marlena Clements RN) documented in this encounter Care Teams Bus Assistant Relationship Specialty Start Date End Date Blanco Lou MD [address] [phone] PCP - General Family Practice 10/30/15 documented as of this encounter
--- OUTSIDE RECORDS SUMMARY | 2024-11-13 11:35 | XMS_ITS | Clinical Summary ---
Author Organization [facility] Address [address] [place] [address] Phone Care Team Providers Care Associate Professor Of Law Name Role Phone Blanco Lou MD Primary Care Provider [phone] Allergies Active Allergy Reactions Criticality Noted Date Comments Amlodipine Hives High 02/27/2021 Atorvastatin Unknown Patient declines statins because she took this 2 wks prior to her CVA Gabapentin Rash Low 06/29/2011 Levetiracetam Other (See Comments) 01/01/2021 Interolerance, pt does not know if any specific Morphine Confusion Low 05/07/2008 Owdmixa-Foq-Xho Reductase Inhibitors Unknown 04/17/2024 Medications ascorbic acid, vitamin C, (VITAMIN C) 1,000 mg Tablet Take 2,000-3,000 mg by mouth daily. Active multivitamin (DAILY-JOVANNI) tablet Take 1 Tablet by mouth daily. Active MAGNESIUM ORAL Take by mouth. Active vit A/vit C/vit E/zinc/copper (ICAPS AREDS ORAL) Take by mouth. Activ e Nayzilam 5 mg/spray (0.1 mL) [place], Non-Aerosol 022 Active ascorbic acid, vitamin C, (VITAMIN C) 1,000 mg Tablet Take 2,000-3,000 mg by mouth daily. 017 Active multivitamin (DAILY-JOVANNI) tablet Take 1 Tablet by mouth daily. 017 Active omega-3 fatty acids-fish oil 300-1,000 mg Capsule Take 3 Capsule by mouth daily. 017 Active midazolam (Nayzilam) 5 mg/spray (0.1 mL) [place], Non-Aerosol Administer 5 mg in each nostril. Active hydroCHLOROthiazi de (MICROZIDE) 12.5 mg capsuleIndication s:Primary hypertension Take 1 capsule by mouth once daily 100 Capsule 2 024 Active albuterol sulfate HFA 90 mcg/actuation aerosol inhalerIndication s:Upper respiratory tract infection, unspecified type Take 2 Puffs by inhalation every 6 hours as needed for Shortness of Breath or Wheezing. 8.5 Gram Active Additional Information Patient not taking.Reported on 11/10/2024 dbtki-3-EUZ-EPA-f jese oil (Fish OiL) 1,000 mg Capsule 1 Capsule. Active antiox #8/om3/dha/epa/tonny t/zeax (PRESERVISION AREDS 2, OMEGA-3, ORAL) PreserVision AREDS 2 Active propranoloL (INDERAL) 10 mg tabletIndications :Essential hypertension Take 1 Tablet (10 mg) by mouth 3 times daily. 270 Tablet 3 025 Active hydrALAZINE (APRESOLINE) 50 mg tabletIndications :Primary hypertension Take 1 Tablet (50 mg) by mouth 3 times daily. 270 Tablet 3 025 Active lisinopriL (PRINIVIL) 40 mg tabletIndications :Essential hypertension TAKE 1 TABLET BY MOUTH IN THE MORNING AND 1/2 (ONE-HALF) IN THE EVENING 135 Tablet 3 025 Active levothyroxine 50 mcg tabletIndications :Acquired hypothyroidism Take 1 Tablet (50 mcg) by mouth daily. 100 Tablet 3 025 Active lacosamide (VIMPAT) 200 mg tablet Take 200 mg by mouth 2 times daily. Active celecoxib (CeleBREX) 100 mg capsule Take 1 Capsule (100 mg) by mouth 2 times daily as needed for Pain. 14 Capsule 025 2024 Active lacosamide (Vimpat) 150 mg tablet Take 1 Tablet (150 mg) by mouth 2 times daily. 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 Tobacco abuse 03/18/2008 Overview (01/01/2021): 1PPD Seizure disorder Overview (01/02/2021): History of CVA (cerebrovascular accident) Overview (06/19/2020): Hemorrhagic Stroke. Affecting memory, speech. Hypothyroidism Overview (06/19/2020): TSH: 10/02; 10/01; 07/31; 04/28 Resolved Problems Problem Noted Date Diagnosed Date Resolved Date Acute encephalopathy 12/31/2020 021 Head ache 08/03/2011 02/04/2019 CVA, old, speech/language deficit 08/03/2011 06/18/2013 Breast CA Screening 03/18/2008 01/13/20 21 Overview (06/19/2020): Mammo: 07/02; 07/31; 11/27 Abnormal EEG 01/02/2021 Encounters Date Type Department Care Team Description 11/12/2024 Telephone [facility] - [facility] [address] [place] [address] Demar Lowry MD General 11/10/2024 10:02 AM CDT - 11/10/2024 11:40 AM CDT Emergency [facility] [address] [facility] [address] [place] [address] Vijay Siegel DO Closed traumatic nondisplaced metaphyseal torus fracture of distal end of left radius, initial encounter (Primary Dx) Discharge Disposition: Home or Self Care 10/30/2024 External Device Data STL ABSTRACTION Provider, Abstract 10/18/2024 8:00 AM CDT Office Visit [facility] [address] [facility] [address] [place] [address] Blanco Lou MD Medicare annual wellness visit, subsequent (Primary Dx); Seizure disorder (CMS/HCC); Acquired hypothyroidism; Mixed hyperlipidemia; Essential hypertension 10/03/[address] [address] Provider, Abstract 09/18/2024 External Device Data STL ABSTRACTION Provider, Abstract 08/20/[address] [address] Provider, Abstract from Last 3 Months Immunizations Immunization Administration Dates Next Due (PFIZER)(12 YR UP) COVID-19 VACCINE - EMERGENCY USE AUTHORIZATION, MRNA, [id number](PF) 30 MCG/0.3 ML IM SUSP 09/22/2020,08/25/2020 (PNEUMOVAX 23)(50 YRS UP) PN EUMOCOCCAL POLYSACCHARIDE (PPV23) 0.5 ML, IM 08/04/2016,01/01/2003 (Pfizer Bivalent)(12 Yr Up) COVID-19 Vaccine - Emergency Use Authorization, MRNA, Lnp-S(Pf) 30 Mcg/0.3 Ml Susp 12/17/2021 (SPIKEVAX) (12 YRS UP PRIMAR Y SERIES) COVID-19 VACCINE - MRNA-1273(PF) 100 MCG/0.5 ML IM SUSP 02/24/2021 (TDVAX)(7 YRS UP) TETANUS AN D DIPHTHERIA TOXOIDS, ADSORBED (2 LF OF TETANUS TOXOID AND 2 LF OF DIPHTHERIA TOXOID), 0.5ML (PF), IM 07/18/2008 INFLUENZA VACCINE HIGH DOSE QUADRIVALENT 65 YR UP PF IM 12/24/2021,01/22/2020 INFLUENZA VACCINE QUADRIVALENT 3 YR UP PF IM 08/2018 INFLUENZA VACCINE QUADRIVALENT 6 MOS UP PF IM INFLUENZA VACCINE QUADRIVALENT ADJ 65 YR UP PF I M 03/06/2021 Influenza Seasonal Unspecified Formulation IM ,11/27/2004 Influenza Vaccine High Dose 65+ Yrs IM 9 Family History Medical History Relation Name Comments Hypertension Brother 1 Healthy Father Hypertension Mother Unknown Paternal Grandfather Unknown Paternal Grandmother Breast Cancer Neg Hx Colon Cancer Neg Hx Ovarian Cancer Neg Hx Relation Name Status Comments Brother 1 Alive Brother 2 Alive 3 Brother 3 Alive Daughter 1 Alive Daughter 2 Alive Daughter 3 Alive Father Alive Maternal Grandfather Maternal Grandmother Mother Alive Paternal Grandfather Paternal Grandmother Sister NONE Social History Tobacco Use Types Packs/Day Years [...] on file Legal Sex Female 12:46 PM CALL SPECIALIST Gender Identity Not on file Sexual Orientation Not on file Last Filed Vital Signs Vital Sign Reading [...] Mass Index 20.52 11/10/2024 10:09 AM CDT Plan of Treatment Upcoming Encounters Date Type Department Care Team (Late st Contact Info) Description 11/14/2024 3:50 PM CDT [facility] Visit [facility]opedic [facility] [address] [place] [address] Demar Lowry MD [address] [place] [address] 04/22/2025 8:40 AM CALL SPECIALIST [facility] Visit [facility] [place] [address] [phone] Blanco Lou MD [address] [address] Health Maintenance Due Date Last Done Comments FIT/ DNA Q 3 YEARS (AUTO ORDER) 1971 FIT/FOBT Q 1 YEAR (AUTO ORDER) 1971 FLEX SIG/CT COLONOGRAPHY Q 5 YEARS (AUTO ORDER) 1971 COLORECTAL CANCER SCREENING (AUTO ORDER) 1998 COLORECTAL SCREENING 1998 Colorectal Cancer Screening (AUTO ORDER) 1998 Colorectal Cancer Screening 1998 FIT-DNA Q 3 years 1998 FIT/FOBT Q 1 year 1998 Flex Sig/CT Colonography Q 5 years 1998 ZOSTER VACCINE (1 of 2) 2003 DTAP/TDAP/TD VACCINES (1 - Tdap) 07/19/2008 07/19/19 09 PNEUMOCOCCAL VACCINE 50+ YEA RS (2 of 2 - PCV) 08/04/2017 08/04/2016, 01/01/2003 OSTEOPOROSIS SCREENING 2018 BREAST CANCER SCREENING 09/23/2023 09/23/19 23, 09/22/2022, 01/31/2019, Additional history exists INFLUENZA VACCINE (#1) 2024 2, 03/06/2021, 01/22/2020, Additional history exists COVID-19 Vaccine (2024-2 6 season) 2024 12/17/2021, 02/24/2021, 09/22/2020, Additional history exists RSV VACCINE (60+ or ) (1 - 1-dose 75+ series) 2028 Medicare [place] ([place]) Preventative Visit/Annual Wellness Visit Completed 10/18/2024, 02/23/2023, 08/23/2022 Procedures Procedure Name Priority Date/Time Associated Diagnosis Comments XR FOREARM 2 VW LEFT Stat 11/10/2024 10:37 AM CDT XR HAND 3+ VW LEFT Stat 11/10/2024 10 :37 AM CDT CBC WITH DIFFERENTIAL Routine 10/18/2024 8:49 AM CDT Seizure disorder (CMS/HCC) Acquired hypothyroidism Mixed hyperlipidemia Essential hypertension COMPREHENSIVE METABOLIC PANEL Routine 10/18/2024 8:49 AM CDT Seizure disorder (CMS/HCC) Acquired hypothyroidism Mixed hyperlipidemia Essential hypertension LIPID PANEL Routine 10/18/2024 8:49 AM CDT Seizure disorder (CMS/HCC) Acquired hypothyroidism Mixed hyperlipidemia Essential hypertension TSH Routine 10/18/2024 8:49 AM CDT Seizure disorder (CMS/HCC) Acquired hypothyroidism Mixed hyperlipidemia Essential hypertension MAMMO 3D JAVAD SCREEN BILAT W OR WO CAD Routine 09/22/2022 Breast cancer screening by mammogram from Last 3 Months or Most Recently Relevant to Health Maintenance Results * XR FOREARM 2 VW LEFT [...] DIAGNOSTIC IMAGING ORDERABLES F inal Result * (ABNORMAL) CBC WITH DIFFERENTIAL (10/18/2024 8:49 AM CDT) Pathologist [facility] WBC 8.3 3.8 - 10.8 Thousand/u L [facility] RBC 4.25 3.80 - 5.10 Million/uL [facility] HEMOGLOBIN 14.7 11.7 - 15.5 g/dL [facility] HEMATOCRIT 44.5 35.0 - 45.0 % [facility] MCV 104.7(H) 80.0 - 100.0 fL [facility] MCH 34.6(H) 27.0 - 33.0 pg [facility] MCHC 33.0 32.0 - 36.0 g/dL [facility] Comment: For adults, a slight decrease in the calculated MCHC value (in the range of 30 to 32 g/dL) is most likely not clinically significant; however, it should be interpreted with caution in correlation with other red cell parameters and the patient's clinical condition. RDW 11.7 11.0 - 15.0 % [facility] PLATELETS 303 140 - 400 Thousand/u L [facility] MPV 10.8 7.5 - 12.5 fL [facility] NEUTROPHIL ABSOLUTE 5,495 1,500 - 7,800 cells/uL [facility] LYMPHOCYTE ABSOLUTE 1,984 850 - 3,900 cells/uL [facility] MONOCYTE ABSOLUTE 631 200 - 950 cells/uL [facility] EOSINOPHIL ABSOLUTE 141 15 - 500 cells/uL [facility] BASOPHILS ABSOLUTE 50 0 - 200 cells/uL [facility] NEUTROPHIL 66.2 % [facility] LYMPHOCYTES 23.9 % [facility] MONOCYTE 7.6 % [facility] EOSINOPHILS 1.7 % [facility] BASOPHILS 0.6 % [facility] Comment: Test Performed at: [facility] [address] [place] [phone] Esthela Peralta MD Blood 10/18/2024 8:49 AM CDT 10/19/2024 4:24 AM CDT Blanco Lou MD HEMATOLOGY ORDERABLES Fin al Result [facility] [phone] [facility] [address] [address] * TSH (10/18/2024 8:49 AM CDT) TSH 1.14 0.40 - 4.50 mIU/L [facility] Comment: Test Performed at: [facility] [address] Esthela Peralta MD Blood 10/18/2024 8:49 AM CDT 10/19/2024 4:24 AM CDT Blanco Lou MD CHEMISTRY ORDERABLES Kelly l Result [facility] [phone] [facility] [address] [address] * (ABNORMAL) LIPID PANEL (10/18/2024 8:49 AM CDT) Pathologist [facility] CHOLESTEROL 235(H) <200 mg/dL [facility] HDL 85 > OR = 50 mg/dL [facility] TRIGLYCERIDE 88 <150 mg/dL [facility] LDL CALCULATED 131(H) mg/dL (calc) [facility] Comment: Reference range: <100 Desirable range <100 mg/dL for primary prevention; <70 mg/dL for patients with CHD or diabetic patients with > or = 2 CHD risk factors. LDL-C is now calculated using the Ghazala calculation, which is a validated novel method providing better accuracy than the Friedewald equation in the estimation of LDL-C. Carlos SS et al. PASQUALE. 2013;310(19): 2082-9123 (http://education.Doubles Alley/faq/LPN994) CHOL/HDL RATIO 2.8 <5.0 (calc) [facility] NON-HDL CHOLESTEROL 150(H) <130 mg/dL (calc) [facility] Comment: For patients with diabetes plus 1 major ASCVD risk factor, treating to a non-HDL-C goal of <100 mg/dL (LDL-C of <70 mg/dL) is considered a therapeutic option. Test Performed at: [facility] [id number] [place] [address] Esthela Peralta MD Blood 10/18/2024 8:49 AM CDT 10/19/2024 4:24 AM CDT us Blanco Lou MD CHEMISTRY ORDERABLES Kelly l Result [facility] [phone] [facility] [address] [place] [address] * (ABNORMAL) COMPREHENSIVE METABOLIC PANEL (10/18/2024 8:49 AM CDT) [facility] GLUCOSE 85 65 - 99 mg/dL [facility] Comment: Fasting reference interval BUN 9 7 - 25 mg/dL [facility] CREATININE 0.54(L) 0.60 - 1.00 mg/dL [facility] GFR 98 > OR = 60 mL/min/1.7 3m2 [facility] BUN/CREAT RATIO 17 6 - 22 (calc) [facility] SODIUM 133(L) 135 - 146 mmol/L [facility] POTASSIUM 4.5 3.5 - 5.3 mmol/L [facility] CHLORIDE 97(L) 98 - 110 mmol/L [facility] CO2 27 20 - 32 mmol/L [facility] CALCIUM 9.8 8.6 - 10.4 mg/dL [facility] TOTAL PROTEIN 7.0 6.1 - 8.1 g/dL [facility] ALBUMIN 4.6 3.6 - 5.1 g/dL [facility] GLOBULIN 2.4 1.9 - 3.7 g/dL (calc) [facility] ALBUMIN/GLOBULIN RATIO 1.9 1.0 - 2.5 (calc) [facility] BILIRUBIN TOTAL 0.6 0.2 - 1.2 mg/dL [facility] ALKALINE PHOSPHATASE 97 37 - 153 U/L [facility] AST 22 10 - 35 U/L [facility] ALT 18 6 - 29 U/L [facility] Comment: Test Performed at: [facility] [address] [facility] [address] Esthela Peralta MD Blood 10/18/2024 8:49 AM CDT 10/19/2024 4:24 AM CDT Blanco Lou MD CHEMISTRY ORDERABLES Kelly l Result [facility] [phone] [facility] [address] [facility] [place] [address] * MAMMO SCRN BILAT 3D JAVAD W OR WO CAD (09/22/2022) Anatomical Region Laterality Modality Breast Bilateral Mammography Blanco Lou MD MAMMO ORDERABLES Final Re sult from Last 3 Months or Most Recently Relevant to Health Maintenance Insurance [place]ICAID [place] [employer] RX Member Subscriber Plan / Payer (Ef fective 2016-Present) Name:Bela Benedict Relation to Subscriber:Self Name:Bela Benedict Payer ID:Not on file Group ID:[id number] Type:RX Medicare Part D Address: [place], [place] RX INFOCROSSING Medicaid Advance Directives For more information, please contact: [phone] * Full Code (Latest Code Status on File) Date Activated Date Inactivated Comments 01/01/2021 11:47 AM 01/02/2021 4:44 PM * Default Full Code - Needs Discussion Date Activated Date Inactivated Comments 12/31/2020 6:14 PM 01/01/2021 11:46 AM Care Teams Associate Professor Of Law Relationship Specialty Start Date End Date Blanco Lou MD [address] [address] PCP - General Family Practice 10/30/15
--- OUTSIDE RECORDS SUMMARY | 2024-11-13 11:35 | XMS_ITS | Encounter Summary ---
Author Organization [facility] Address [address] [place] [address] Care Team Providers Care Vehicle Assembly Inspector Name Role Phone Blanco Lou MD Primary Care Provider [phone] Reason for Visit * Reason Onset Date Comments General 11/12/2024 Encounter Details Date Type Department Care Team (Late st Contact Info) Description 11/12/2024 Telephone [facility] - Orth[facility] [address] [place] [address] Demar Lowry MD [address] [place] [address] General Social History Tobacco Use Types Packs/Day Years Used Date Smoking Tobacco: Every Day Cigarettes Passive Smoke Exposure: Current Smokeless Tobacco: Never Alcohol Use Standard Drinks/Week Comments Yes 0 (1 standard drink = 0.6 oz pur e alcohol) 3 times a week Feeling Safe Answer Date Recorded Are you in a relationship wi th someone who hurts you emotionally and/or physically? 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 Gender Identity Not on file Sexual Orientation Not on file documented as of this encounter Miscellaneous Notes * Telephone Encounter - Leanna Graff - 11/12/2024 8:03 AM CDT Doctor: OSMAN - C UNIX DEVELOPER 11/10/24 Phone #: Person Calling: Relationship to patient: Reason for call: ED REFERRAL - Closed traumatic nondisplaced metaphyseal torus fxc distal left radius XRAYS ON PACS PLEASE ADVISE documented in this encounter Plan of Treatment Upcoming Encounters Date Type Department Care Team (Late st Contact Info) Description 11/14/2024 3:50 PM CDT Office Visit [facility] - [facility] [address] [place] [address] Demar Lowry MD [address] [place] [address] 04/22/2025 8:40 AM TESTER WASTE DISPOSAL LEAKAGE Office Visit [facility] [address] [address] Blanco Lou MD [address] [address] documented as of this encounter Visit Diagnoses Not on filedocumented in this encounter Care Teams Vehicle Assembly Inspector Relationship Specialty Start Date End Date Blanco Lou MD [address] [address] PCP - General Family Practice 10/30/15 documented as of this encounter
--- OUTSIDE RECORDS SUMMARY | 2024-11-13 11:35 | XMS_ITS | Patient Health Record ---
Author Organization [facility] Address [address] [place] [address] Care Team Providers Care Sheet Metal Assembler And Riveter Name Role Phone Rachelle Mcfadden APRN Primary Care Provider Kavin Mckeon Unavailable [phone] Allergies Allergen (clinical drug ingredient) Drug/Non Drug Allergy documented on EMR Reaction Allergy Type Onset Date Status levetiracetam Keppra Unknown Drug Allergy Act prasanna gabapentin Gabapentin Unknown Drug Allergy Activ e Latex Latex Unknown Allergy Active morphine Morphine Unknown Drug Allergy Active Substance with 7-hdkpbso-9-methylglutar yl-coenzyme A reductase inhibitor mechanism of action (substance) Statins Unknown Drug Allergy Active Results Component Value Reference Range Notes XR Outside CD Reviewed date:11/12/2024 12:31:20 PM Interpretation: Performing Lab: Notes/Report: [id number] Reason For Referral No Information Medications Medication SIG (Take, Route, Frequency, Duration) Notes Start Date End Date Status Propantheline Stuart Active Levothyroxine Sodium 50 MCG Tablet 1 tablet in the morning on an empty stomach Orally Once a day Active Lisinopril 40 MG Tablet 1 tablet Orally Once a day Active Vitamin C Active Fish Oil Active hydrALAZINE HCl 10 MG Tablet 1 tablet wi th food Orally Four times a day Active PreserVision AREDS 2 Active Vimpat 100 MG Tablet 1 tablet Orally Twi ce a day Active Social History Tobacco Use: Social History Observation Description Date Details (start date - stop date) Current Smoker NA - NA Social History Tobacco Use: Social Info Question Answer Notes xTobacco Use/Smoking Are you a current smoker How often do you smoke cigarettes? 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 Problem Female urinary stress incontinence (61904871) ELENA (stress urinary incontinence, female) (N39.3) Active confirmed Problem Microscopic hematuria (697095010) Microscopic hematuria (R31.29) Active confirmed Problem Retained ureteral stent (781396467) Retained ureteral stent (Z96.0) Active confirmed Problem Incomplete emptying of bladder (602395184) Incomplete emptying of bladder (R33.9) Active confirmed Problem Bilateral hydronephrosis (48005783) Bilateral hydronephrosis (N13.30) Active confirmed Problem Retention of urine (327738023) History of urinary retention (Z87.898) Active confirmed Problem Midline cystocele (064087108) Bladder prolapse, female, acquired (N81.10) Active confirmed Problem Nabothian cyst (461774038) Nabothian cyst (N88.8) Active confirmed Problem History of hydronephrosis (8257475286967538 1) History of hydronephrosis (Z87.448) Active confirmed Problem Uterovaginal prolapse (32923443) Uterus prolapse (N81.4) Active confirmed Problem Midline cystocele (066824031) Female bladder prolapse (N81.10) Active confirmed Problem Third degree uterine prolapse (92586985) 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) Active confirmed Encounters Encounter Location Date Provider Diagnosis [facility] [address] [place] [address] 11/13/2024 Kavin Vallejo Plan Of Treatment Pending Test Test Name Order Date Basic Metabolic Panel (BMP) 65458 2021 Electrocardiogram 12 Lead Tracing-52547 09/18/2021 Insurance Providers Payer Name Payer Address Payer Phone Subscriber Number Group Number Insured Name Patient Relationship to Insured Coverage Start Date Coverage End Date NOT IN NETWORK - UHC Medicare Dual Complete HMO [address] [address] [place] [address] [id number] Bela Benedict Self - patient is the insured [place] Medicaid [address] [place] [address] [phone] [id number] Bela Benedict Self - patient is the insured [employer] [address] [address] [place] [address] [id number] Bela Benedict Self - patient is the insured Medical (General) History Medical History History ICD Code hydronephrosis female bladder prolapse procidentia of uterus brain aneurysm / tumor Surgical History Surgery Date(Month/Year) hysterectomy insertion of ureteral stents crainotomy partial back x 2 Hospitalization History Reason Date(Month/Year) seizures 2020
--- OUTSIDE RECORDS SUMMARY | 2024-11-13 11:35 | XMS_ITS | Patient Health Record ---
Author Organization [facility] Address [address] [place] [address] Care Team Providers Care Employee Communications Specialist Name Role Phone Blanco Lou Primary Care Provider UnavailGERI Chong Unavailable [phone] Rachelle Mcfadden APRN Unavailable Unavailable WADE LOVE Unavailable [phone] Allergies Allergen (clinical drug ingredient) Drug/Non Drug Allergy documented on EMR Reaction Allergy Type Onset Date Status gabapentin Gabapentin Unknown Drug Allergy Activ e levetiracetam Keppra Unknown Drug Allergy Act prasanna Latex Latex Unknown Allergy Active morphine Morphine Unknown Drug Allergy Active Substance with 5-rsfvxlz-5-methylglutar yl-coenzyme A reductase inhibitor mechanism of action (substance) Statins Unknown Drug Allergy Active Results Component Value Reference Range Notes zzzXR Outside CD (Not yet re viewed by provider) Interpretation: Performing Lab: Notes/Report: Outside Films Only. No report for these images. FINAL REPORT Read Outside Films Only. No report for these images. Reason For Referral No Information Medications Medication SIG (Take, Route, Frequency, Duration) Notes Start Date End Date Status Levothyroxine Sodium 50 MCG 1 tablet in the morning on an empty stomach Orally Once a day Active Propranolol HCl 10 MG 1 tablet Orally fo ur times a day Active Lisinopril 40 MG 1 tablet Orally Once a day Active Fish Oil 1000 MG 1 capsule Orally daily Active Vimpat 100 MG 1 tablet Orally Twic e a day Active PreserVision AREDS 2 Not-Taking Vitamin C Active hydrALAZINE HCl 10 MG 1 tablet with food Orally Four times a day Active Social History Tobacco Use: Social History Observation Description Date Details (start date - stop date) Current Smoker NA - NA Tobacco Control (Standard) Question Answer Notes Tobacco use: Current smoker How often do you smoke cigarettes? Every day How many cigarettes a day do you smoke? 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) Active confirmed Problem Retention of urine (968551828) History of urinary retention (Z87.898) Active confirmed Problem Midline cystocele (584049107) Bladder prolapse, female, acquired (N81.10) Active confirmed Problem History of hysterectomy (008319846) S/P hysterectomy (Z90.710) Active confirmed Problem Bilateral hydronephrosis (08618694) Bilateral hydronephrosis (N13.30) Active confirmed Problem Nabothian cyst (530848704) Nabothian cyst (N88.8) Active confirmed Problem Incomplete emptying of bladder (065804014) Incomplete emptying of bladder (R33.9) Active confirmed Problem Uterovaginal prolapse (19350703) Uterus prolapse (N81.4) Active confirmed Problem Female urinary stress incontinence (05867461) ELENA (stress urinary incontinence, female) (N39.3) Active confirmed Problem Microscopic hematuria (734155065) Microscopic hematuria (R31.29) Active confirmed Problem History of hydronephrosis (2167628916734710 1) History of hydronephrosis (Z87.448) Active confirmed Problem Midline cystocele (850116255) Female bladder prolapse (N81.10) Active confirmed Plan Of Treatment Pending Test Test Name Order Date Basic Metabolic Panel 97914 09/18/2021 Culture Urine Reflex--[id number] 09/18/2021 Electrocardiogram 12 Lead Tracing-39989 09/18/2021 zzzXR Outside CD 11/10/2024 Medical (General) History Medical History History ICD Code hydronephrosis female bladder prolapse procidentia of uterus brain aneurysm / tumor Surgical History Surgery Date(Month/Year) back x 2 crainotomy partial insertion of ureteral stents hysterectomy Hospitalization History Reason Date(Month/Year) seizures 2020
[2024-11-13 11:50] VITALS: BP 173/96; PULSE 74; RESP 18; TEMP 36.5; O2SAT 94; BMI 20.1
--- NOTE | 2024-11-13 11:59 | CT_ITS ---
WS: [id number] CT HEAD TECHNIQUE: Noncontrast CT of the head obtained from the skullbase to the vertex. CLINICAL INFORMATION: opening at old surgical site COMPARISON: MRI 2015 DLP: 1083.[address] scans at [facility] use at least one of these dose optimization techniques: automated exposure control; mA and/or kV adjustment per patient size (includes targeted exams where dose is matched to clinical indication); or iterative reconstruction. FINDINGS: LEFT frontal parietal craniectomy with resection cavity and cranioplasty. 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 This is stable compared to 2015. LEFT frontal parietal cranioplasty with pneumocephalus deep to the cranioplasty graft. Small amount of dependent extra-axial fluid. Encephalomalacia deep to the cranioplasty similar to previous. No evidence of increasing edema or mass effect. Mastoid air cells are well aerated. Paranasal sinuses are well aerated. No other acute findings. CT/CT head wo con* [id number] IMPRESSION: 1. Prior postoperative changes LEFT frontal parietal craniectomy with craniopl asty similar to 2015. 2. 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 3. Eccentric area of pneumocephalus deep to the cranioplasty with a tiny amoun t of dependent fluid. Recommend neurosurgical assessment. No significant mass e ffect. 4. No other acute findings.
--- NOTE | 2024-11-13 12:14 | W.ED.GENADLT ---
HPI - General Adult General: Chief complaint: General Medical Stated complaint: leaking fluid on head,fell,hx skull fracture Time Seen by Provider: 11/13/24 12:14 History of Present Illness: 69-year-old female presents to the emergency room with a family member accompanying her. 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 They are concerned because there is drainage from a open area in the scalp. They had noticed the drainage over the last couple of days and they were concerned that it had happened when she fell. There was no loss consciousness time of the fall and there is no evidence of trauma to the head. Several decades ago the patient had a tumor resection in that region and a plate was put into place to replace a portion of the parietal bone after the craniotomy. They began to notice clear drainage from that area and there is a large amount of caked eschar inferior to this region. She denies any fever sweats or chills she is at her normal neurologic baseline she does have some word finding difficulty which they relate to the previous craniotomy and the stroke she had subsequent to that. Associated symptoms: Deny chest pain, dyspnea or rash Related Data Home Medications ?Medication ?Instructions ?Recorded ?Confirmed acetaminophen 325 mg capsule 325 mg PO QID PRN Pain 07/09/21 06/27/23 ascorbic acid (vitamin C) 1,000 mg 1,000 mg PO Q12H 07/09/21 06/27/23 tablet,extended release hydralazine 10 mg tablet 10 mg PO TID 07/09/21 06/27/23 lisinopril 40 mg tablet 40 mg PO DAILY 07/09/21 06/27/23 magnesium 200 mg tablet 200 mg PO DAILY 07/09/21 06/27/23 oqyavgjj-adl-azvwu ac 400 1 tab PO DAILY 07/09/21 06/27/23 mcg-calcium carb 500 mg-vit K1 20 mcg tablet (Women's 50 Plus Multivitamin) omega 5-ulm-owb-fish oil 100 1 cap PO DAILY 07/09/21 06/27/23 mg-160 mg-1,000 mg capsule (Fish Oil) propranolol 10 mg tablet 10 mg PO TID 07/09/21 06/27/23 lacosamide 100 mg tablet (Vimpat) 100 mg PO BID 09/17/21 06/27/23 Allergies Allergy/AdvReac Type Severity Reaction Status Date / Time divalproex sodium (From Allergy Severe Unknown Verified 06/27/23 09:08 Depakote) Calcium Channel Blocking Allergy Unknown Unknown Verified 06/27/23 09:08 Agent Dilt gabapentin Allergy Unknown Unknown Verified 06/27/23 09:08 levetiracetam Allergy Unknown Unknown Verified 06/27/23 09:08 morphine Allergy Unknown Unknown Verified 06/27/23 09:08 Vdwhxdf-ROO-YsV Reductase Allergy Unknown Unknown Verified 06/27/23 09:08 Inhibitor Review of Systems Const: Denies: fever(s) or chills Card: Denies: chest pain Resp: Denies: dyspnea GI: Denies: abdominal pain : Denies: dysuria, urinary frequency or urinary urgency Musc: Denies: neck pain or back pain Skin/Breast: Denies: rash PFSH ED PFSH: Medical History Stroke December Hypertension Hyperthyroidism Surgical History History of back surgery 3 back surgeries, implantations placed History of craniotomy 2004, reconnection in 2005 Family History Mother Hyperlipidemia Hypertension Thyroid disease hyperthyroidism Daughter Stroke Denies family history of Cervical cancer Colon cancer Prostate cancer Diabetes Heart disease Breast cancer Bleeding disorder Uterine cancer Social History Smoking and tobacco/nicotine status: current every day tobacco/nicotine user Physical Exam Const: GENERAL APPEARANCE: cooperative ORIENTATION/CONSCIOUSNESS: Yes awake, Yes oriented to person, Yes oriented to place and Yes oriented to time HENMT: COMMON NORMALS: normocephalic, atraumatic and hearing grossly normal bilaterally HEAD & SCALP: normocephalic and atraumatic OTHER: Significant amount of crusting eschar inferior to this open area as pictured above. There is no bleeding no signs of acute infection no signs of recent trauma no erythema induration or recent laceration. Skin edges are retracted appear to be chronic open wound. Resp: COMMON NORMALS: normal respiratory effort, No retractions, No use of accessory muscles and clear to auscultation bilaterally AUSCULTATION: clear to auscultation bilaterally Cardio: COMMON NORMALS: regular rate, regular rhythm and No murmurs present (Cardio) RATE: regular rate RHYTHM: regular rhythm GI: COMMON NORMALS: Soft to palpation and No hepatosplenomegaly present AUSCULTATION: Yes normoactive bowel sounds PALPATION: Yes Soft to palpation, No Tenderness to palpation present (GI), No Guarding due to palpation present (GI) and Yes No hepatosplenomegaly present Extremity: COMMON NORMALS: normal to inspection, capillary refill normal, no clubbing, cyanosis or edema, no calf tenderness and no pedal edema Neuro: YVROSE COMA SCALE: document GCS findings [place] coma scale eye opening: Spontaneous [place] coma scale verbal response: Orientated Yvrose coma scale motor response: Obey commands Yvrose coma scale total score: 15 SENSORIUM/ORIENTATION: Yes oriented to person, Yes oriented to place and Yes oriented to time Skin: COMMON NORMALS: no rashes or lesions noted GENERAL SKIN EXAM: no rashes or lesions noted Course Vital Signs: Vital signs: Vital Signs Temperature 97.7 F 11/13/24 11:50 Pulse Rate 64 11/13/24 14:30 Respiratory Rate 18 11/13/24 11:50 Blood Pressure 153/87 11/13/24 14:30 Pulse Oximetry 96 11/13/24 14:30 Oxygen Delivery Me thod Room Air 11/13/24 14:30 MDM - General Adult Medical Decision Making As and pictured above in the physical exam there is exposed portion of the plate that is approximately an inch round. The skin edges are retracted and appears it has been open for some time. Will contact [facility] in [place]. They will accept the patient on transfer they recommend ER to ER if discussed Dr. Mojica in the emergency room. No sign of acute infection at this time patient given prophylactic single dose of Ancef. Will keep her n.p.o. transfer by ambulance. Discussed findings and recommendations with the family. X-ray of the left forearm demonstrates distal radius fracture. Volar splint placed to immobilize Medical Records I reviewed the patient's medical records. Lab Data I reviewed the patient's lab results. 11/13/24 13:04 11/13/24 13:[address] 11/13/24 11:59 IMPRESSION: 1. Prior postoperative changes LEFT frontal parietal craniectomy with cranioplasty similar to 2015. 2. 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 3. Eccentric area of pneumocephalus deep to the cranioplasty with a tiny amount of dependent fluid. Recommend neurosurgical assessment. No significant mass effect. 4. No other acute findings. Elbow X-Ray 11/13/24 13:06 IMPRESSION: 1. Negative LEFT elbow. Laboratory Results WBC 8.27 10^3/uL (3.29-11.43) 11/13/24 13:04 RBC 4.09 10^6/uL (3.85-5.65) 11/13/24 13:04 Hgb 13.90 g/dL (11.27-16.99) 11/13/24 13:04 Hct 40.6 % (36-47) 11/13/24 13:04 MCV 99.3 fl (85-98) H 11/13/24 13:04 MCH 34.0 pg (27-33) H 11/13/24 13:04 MCHC 34.2 g/dL (30-55) 11/13/24 13:04 RDW 12.8 % (12.1-15.1) 11/13/24 13:04 Plt Count 341 10^3/cmm (157-399) 11/13/24 13:04 MPV 9.3 fL (7.4-10.4) 11/13/24 13:04 Neut % (Auto) 62.3 % 11/13/24 13:04 Lymph % (Auto) 26.8 % 11/13/24 13:04 [place] % (Auto) 8.0 % 11/13/24 13:04 Eos % (Auto) 1.8 % 11/13/24 13:04 Baso % (Auto) 0.7 % 11/13/24 13:04 Neut # (Auto) 5.15 10^3/uL (1.8-7.7) 11/13/24 13:04 Lymph # (Auto) 2.2 10^3/uL (0.8-4.8) 11/13/24 13:04 [place] # (Auto) 0.7 10^3/uL (0.2-0.9) 11/13/24 13:04 Eos # (Auto) 0.2 10^3/uL (0.0-0.8) 11/13/24 13:04 Baso # (Auto) 0.1 10^3/uL (0.0-0.1) 11/13/24 13:04 Nucleated RBC % (auto) 0 % 11/13/24 13:04 Nucleated RBCs # 0.0 /100WBC 11/13/24 13:04 ESR 7 mm/hr (0-15) 11/13/24 13:04 Sodium 136 mmol/L (136-145) 11/13/24 13:04 Potassium 4.9 mmol/L (3.5-5.1) 11/13/24 13:04 Chloride 99 mmol/L (98-107) 11/13/24 13:04 Carbon Dioxide 25 mmol/L (22-29) 11/13/24 13:04 Anion Gap 16.9 (5-19) 11/13/24 13:04 BUN 9 mg/dL (8-23) 11/13/24 13:04 Creatinine 0.4 mg/dL (0.5-0.9) L 11/13/24 13:04 GFR Calculation Not Reportable 11/13/24 13:04 Glucose 86 mg/dL (65-115) 11/13/24 13:04 Calculated Osmolality 280 mOsm/kg (285-295) L 11/13/24 13:04 Lactic Acid 0.9 mmol/L (0.5-2.2) 11/13/24 13:04 Calcium 9.6 mg/dL (8.5-10.5) 11/13/24 13:04 Total Bilirubin 0.5 mg/dL (0.15-1.2) 11/13/24 13:04 AST 22 U/L (0-32) 11/13/24 13:04 ALT 17 U/L (0-33) 11/13/24 13:04 Alkaline Phosphatase 103 U/L (35-105) 11/13/24 13:04 C-Reactive Protein 28.4 mg/L (0.0-4.9) H 11/13/24 13:04 Total Protein 7.2 g/dL (6.6-8.7) 11/13/24 13:04 Albumin 4.4 g/dL (3.5-5.2) 11/13/24 13:04 Globulin 2.8 g/dL (1.3-4.6) 11/13/24 13:04 Urine Color Yellow (Yellow) 11/13/24 13:55 Urine Appearance Clear (CLEAR) 11/13/24 13:55 Urine pH 7.5 (5-7) 11/13/24 13:55 Ur Specific [place] 1.005 (1.005-1.030) 11/13/24 13:55 Urine Protein Negative (Negative) 11/13/24 13:55 Urine Glucose (UA) Negative (Normal) 11/13/24 13:55 Urine Ketones Negative (Negative) 11/13/24 13:55 Urine Blood Trace (Negative) A 11/13/24 13:55 Urine Nitrate Negative (Negative) 11/13/24 13:55 Urine Bilirubin Negative (Negative) 11/13/24 13:55 Urine Urobilinogen 1.0 mg/dL (Negative) 11/13/24 13:55 Ur Leukocyte Esterase Negative (Negative) 11/13/24 13:55 Urine RBC 3-5 /hpf (0-2) 11/13/24 13:55 Urine WBC 0-5 /hpf (0-5) 11/13/24 13:55 Ur Squamous Epith Cells 0-5 /hpf (0-5) 11/13/24 13:55 Amorphous Sediment Not Reportable 11/13/24 13:55 Urine Bacteria None seen /hpf (NONE) 11/13/24 13:55 Hyaline Casts 0-4 /lpf H 11/13/24 13:55 All radiology interpretation(s) finalized by discharge Discharge Plan Discharge Patient Disposition: Xfer Short-Term Hosp Clinical Impression: Open wound of scalp, complicated, Distal radius fracture, left Condition: Stable Referrals: Blanco Lou [Primary Care Provider, Family Practice] Print Language: Icelandic Coding Level of Care Code ED Contract Officer for Lowell Sandoval
--- NOTE | 2024-11-13 12:42 | XR_ITS ---
WS: [id number] Exam: XR forearm LT 2V [id number] Date/Time of Exam: 11/13/2024 12:45 PM Reason For Exam: L FA pain s/p fall Compared to outside radiographs performed 11/10/2024. There is an impacted fracture of the distal radius with mild dorsal angulation. No other acute fractures are seen. Advanced degenerative changes at the wrist and in the proximal carpal bones. Chondrocalcinosis of the triangular fibrocartilage. No other forearm fractures. IMPRESSION1. Impacted mildly angulated fracture of the distal radius as noted above. Additional chronic findings.
--- NOTE | 2024-11-13 13:06 | XR_ITS ---
WS: [id number] Exam: XR elbow LT 2V [id number] Date/Time of Exam: 11/13/2024 1:06 PM Reason For Exam: ER 2 DLP: No acute fracture. The joints are preserved. No joint effusion. Normal soft tissues. XR/XR elbow LT 2V [id number] IMPRESSION: 1. Negative LEFT elbow.
[2024-11-13 13:11] LABS: Hematocrit 40.6 % (36-47); Hemoglobin 13.90 g/dL (11.27-16.99); Mean Corpuscular HGB Conc 34.2 g/dL (30-55); Mean Corpuscular Hemoglobin 34.0 pg (27-33); Mean Corpuscular Volume 99.3 fl (85-98); Nucleated Red Blood Cells % 0 %; Platelet Count 341 10^3/cmm (157-399); Red Blood Count 4.09 10^6/uL (3.85-5.65); White Blood Count 8.27 10^3/uL (3.29-11.43)
[2024-11-13 13:30] LABS: Alanine Aminotransferase 17 U/L (0-33); Albumin Level 4.4 g/dL (3.5-5.2); Alkaline Phosphatase 103 U/L (35-105); Anion Gap 16.9 (5-19); Aspartate Amino Transferase 22 U/L (0-32); Blood Urea Nitrogen 9 mg/dL (8-23); Calcium 9.6 mg/dL (8.5-10.5); Carbon Dioxide 25 mmol/L (22-29); Chloride 99 mmol/L (98-107); Creatinine Clr Calc Pharmacy 50.9298; Globulin 2.8 g/dL (1.3-4.6); Glucose 86 mg/dL (65-115); Lactic Sepsis W/Reflex 0.9 mmol/L (0.5-2.2); Osmolality Calculated 280 mOsm/kg (285-295); Potassium 4.9 mmol/L (3.5-5.1); Sodium 136 mmol/L (136-145); Total Protein 7.2 g/dL (6.6-8.7)
[2024-11-13 13:56] VITALS: BP 177/119; PULSE 77; O2SAT 98
[2024-11-13 14:00] VITALS: BP 175/85; PULSE 62; O2SAT 97
[2024-11-13 14:05] LABS: Glucose Urine UA Negative (Normal); Nitrate Urine Negative (Negative); Specific Gravity, Urine 1.005 (1.005-1.030)
[2024-11-13 14:30] VITALS: BP 153/87; PULSE 64; O2SAT 96
[2024-11-13] MEDS: ceFAZolin 1,000 mg SDV 1000 MG IVP (15:20)
[2024-11-13 16:00] VITALS: BP 160/80; PULSE 60; O2SAT 96
[2024-11-13 16:34] VITALS: BP 153/87; PULSE 66; O2SAT 96
== END 2024-11-13 16:36 | disposition short-term general hospital (02) ==
PROVIDERS: Emergency Medicine; Emergency Provider Family Medicine; PCP Family Medicine
DX: S01.00XA Unspecified open wound of scalp, initial encounter (principal); S52.502D Unspecified fracture of the lower end of left radius, subsequent encounter for closed fracture with routine healing; X58.XXXD Exposure to other specified factors, subsequent encounter; Z72.0 Tobacco use; I10 Essential (primary) hypertension; Z86.73 Personal history of transient ischemic attack (TIA), and cerebral infarction without residual deficits; W19.XXXD Unspecified fall, subsequent encounter; X58.XXXA Exposure to other specified factors, initial encounter
CPT/HCPCS: 36415; 70450; 73070; 73090; 80053; 81001; 83605; 85025; 85651; 86140; 87040; 96374; 99285; J0690; J9999